=== PATIENT | female | born 1935 | race Caucasian/White ===

== ENCOUNTER 2017-04-01 12:43 | Emergency (ER) | payer OTHER ==
[~2017-04-01] VITALS: Ht 157.5 cm; Wt 60.3 kg
--- NOTE | ~2017-04-01 | EKG ---
[place] [address] [facility] [place] [employer] [place] [address] ELECTROCARDIOGRAM REPORT Name: BLAIRE MERCADO Room #: [place] CAMPUSEthan#: [id number] Admission: 04/01/17 Attend Phys: Discharge: 04/01/17 Date of : 33 Report #: [id number] THIS REPORT FOR: //name// [facility] ED Test Date: 2017-04-01 Test Time: 13:07:58 Pat Name: BLAIRE MERCADO Department: Room: Gender: F [employer] Operator: YOEL : 1935 Requested By: Jeffrey Pate Order Number: [id number] MD: Wander Terrell Measurements Intervals [place] Rate: 87 P: 70 WA: 177 QRS: -39 QRSD: 76 T: 28 QT: 367 QTc: 442 Interpretive Statements Sinus rhythm Left atrial enlargement Abnormal R-wave progression, late transition Inferior infarct, old Electronically Signed On 04-01-2017 16:53:41 CULINARY SPECIALIST by Wander Terrell [email or web address] <ELECTRONICALLY SIGNED> By: Wander Terrell MD 04/01/17 1653 D: 01/1306 06 Wander Terrell MD /MELLO
[~2017-04-01 12:43] MED LIST: ALLEGRA180 MG PO; CRESTOR10 MG PO; DITROPAN XL5 MG PO; GABAPENTIN100 MG PO; ZESTRIL2.5 MG PO
[2017-04-01 13:05] LABS: HEMATOCRIT 35.9 % (37.0-47.0); HEMOGLOBIN 12.4 gm/dL (12.0-15.0); MCH 32.7 pg (26.0-34.0); MCHC 34.4 g/dL (28.0-37.0); RBC 3.78 mil/uL (4.20-5.00); RDW 11.9 % (10.5-14.5); WBC 8.2 thou/uL (4.0-11.0)
[2017-04-01] MEDS ORDERED: DITROPAN XL10 MG (13:06)
[2017-04-01] MEDS ORDERED: RESTASIS1 EACH OPHTHALMIC (13:06)
[2017-04-01 13:11] LABS: ANION GAP 11 mmol/L (7-16); BUN 24 mg/dL (7-18); CALCIUM 9.1 mg/dL (8.5-10.1); CHLORIDE 105 mmol/L (98-107); CO2 26 mmol/L (21-32); CREATININE 0.9 mg/dL (0.6-1.0); GLUCOSE 149 mg/dL (74-106); POTASSIUM 4.1 mmol/L (3.5-5.1); SODIUM 142 mmol/L (136-145)
[2017-04-01 13:19] LABS: ALBUMIN 3.6 g/dL (3.4-5.0); LIPASE 118 U/L (73-393); SGOT 24 U/L (15-37); SGPT 31 U/L (30-65); TOTAL BILIRUBIN 0.4 mg/dL (<0.1-1.0); TOTAL PROTEIN 6.5 g/dL (6.4-8.2); TROPONIN-I < 0.04 ng/mL (<0.06)
[2017-04-01] MEDS ORDERED: ONDANSETRON HCL4 M2 PO (14:23)
== END 2017-04-01 14:34 | disposition home or self-care (01) ==
LOC: ER 12:43
PROVIDERS: Emergency Medicine
DX: R11.2 Nausea with vomiting, unspecified (principal); R42 Dizziness and giddiness; E78.00 Pure hypercholesterolemia, unspecified; I10 Essential (primary) hypertension; E11.40 Type 2 diabetes mellitus with diabetic neuropathy, unspecified; Z90.710 Acquired absence of both cervix and uterus